=== PATIENT | male | born 1970 | race Caucasian/White ===

== ENCOUNTER 2019-09-23 01:27 | Emergency (ER) | payer BC ==
[2019-09-23 01:37] VITALS: BP 151/94; PULSE 98
--- NOTE | 2019-09-23 02:19 | EDM.PDOC ---
ED HPI GENERAL MEDICAL PROBLEM - General Chief Complaint: ENT Problem Stated Complaint: PERSISTENT NOSE BLEED OVER 24 HOURS Time Seen by Provider: 09/23/19 01:50 Source of Information: Reports: Patient, Family () History Limitations: Reports: No Limitations - History of Present Illness INITIAL COMMENTS - FREE TEXT/NARRATIVE: Mr. Gomez is a very pleasant 49-year-old gentleman with no chronic medical problems, on no medications, who now presents the ED with painless epistaxis that has been coming and going since 15:00 to 16:00 yesterday afternoon. The patient states that blood is coming out of both nostrils. No trauma to the nose, and the patient is not on any blood thinners. No prior history of epistaxis. The patient states that he has packed both nostrils, and pinched them tightly for 15 minutes, about 6 times, but that the bleeding continues to recur. Here in the ED, the patient's initial BP is found to be mildly elevated at 151/94, otherwise, he is hemodynamically stable, afebrile, saturating 96% on room air. Other than the epistaxis, the patient denies recent fever, chills, sore throat, ear pain or decreased hearing, nasal or sinus congestion, cough, dyspnea, chest pain, palpitations, nausea, vomiting, constipation, diarrhea, abdominal pain, urinary symptoms, recent weight gain or weight loss, recent bloody bowel movements or black bowel movements, recent joint aches, headaches, or rashes. The patient's PCP is Lauren Campo NP. - Related Data Allergies Allergy/AdvReac Type Severity Reaction Status Date / Time No Known Allergies Allergy Verified 09/23/19 01:35 Home Meds: Home Meds . [No Known Home Meds] 09/18/14 [History] Past Medical History - Past Surgical History HEENT Surgical History: Reports: Other (See Below) (Cleft palate repair as an ) Social & Family History - Tobacco Use Smoking Status *Q: Current Every Day Smoker Years of Tobacco use: 39 Packs/Tins Daily: 1.5 - Alcohol Use Alcohol Use History: Yes Alcohol Use Frequency: Socially - Recreational Drug Use Recreational Drug Use: Yes Drug Use in Last 12 Months: Yes Recreational Drug Type: Reports: Cocaine (last snorted around 1989), LSD (Acid) (last took around 1989), Marijuana/Hashish (smokes weekly), Methamphetamine (last snorted, smoked, injected around 1989), Psilocybin (Mushrooms) (last took 2019), Valium (last took when 16 yrs old) - Living Situation & Occupation Living situation: Reports: , with Spouse Occupation: Unemployed ED ROS ENT - Review of Systems Review Of Systems: Comprehensive ROS is negative, except as noted in HPI. ED EXAM, ENT - Physical Exam Exam: See Below Exam Limited By: No Limitations General Appearance: Alert, WD/WN, No Apparent Distress Eye Exam: Bilateral Eye: EOMI, Normal Inspection Ears: Normal External Exam, Normal Canal, Hearing Grossly Normal, Normal TMs Nose: Normal Inspection, Normal Mucousa, No Blood. No: Dried Blood Mouth/Throat: Normal Gums, Normal Lips, Normal Teeth, Other (Small amount of dried blood on the posterior oropharynx. No blood clots or active bleeding seen.) Head: Atraumatic, Normocephalic Neck: Normal Inspection, Supple, Non-Tender, Full Range of Motion. No: Lymphadenopathy (L), Lymphadenopathy (R) Course - Vital Signs Last Recorded V/S: Last Vital Signs Temp 36.5 C 09/23/19 01:35 Pulse 98 09/23/19 01:35 Resp 16 09/23/19 01:35 BP 151/94 H 09/23/19 01:35 Pulse Ox 96 09/23/19 01:35 - Orders/Labs/Meds Labs: Laboratory Tests 09/23/19 09/23/19 09/23/19 Range/Units 02:16 02:16 02:16 WBC 9.88 H (4.23-9.07) K/mm3 RBC 5.30 (4.63-6.08) M/mm3 Hgb 16.1 (13.7-17.5) gm/dl Hct 47.3 (40.1-51.0) % MCV 89.2 (79.0-92.2) fl MCH 30.4 (25.7-32.2) pg MCHC 34.0 (32.2-35.5) g/dl RDW Std Deviation 44.1 H (35.1-43.9) fL Plt Count 250 (163-337) K/mm3 MPV 8.8 L (9.4-12.3) fl Neutrophils % (Manual) 76 H (40-60) % Band Neutrophils % 2 (0-10) % Lymphocytes % (Manual) 12 L (20-40) % Atypical Lymphs % 0 % Monocytes % (Manual) 8 (2-10) % Eosinophils % (Manual) 1 (0.8-7.0) % Basophils % (Manual) 1 (0.2-1.2) Platelet Estimate Adequate Plt Morphology Comment Normal RBC Morph Comment Normal PT 10.9 (9.7-12.0) SECONDS INR 1.00 APTT 30 (22-31) SECONDS Sodium 137 (136-145) mEq/L Potassium 4.1 (3.5-5.1) mEq/L Chloride 101 (98-107) mEq/L Carbon Dioxide 28 (21-32) mEq/L Anion Gap 12.1 (5-15) BUN 27 H (7-18) mg/dL Creatinine 1.2 (0.7-1.3) mg/dL Est Cr Clr Drug Dosing 68.85 mL/min Estimated GFR (MDRD) > 60 (>60) mL/min BUN/Creatinine Ratio 22.5 H (14-18) Glucose 116 H (74-106) mg/dL Calcium 8.8 (8.5-10.1) mg/dL Total Bilirubin 0.6 (0.2-1.0) mg/dL AST 21 (15-37) U/L ALT 37 (16-63) U/L Alkaline Phosphatase 84 (46-116) U/L Total Protein 6.9 (6.4-8.2) g/dl Albumin 3.6 (3.4-5.0) g/dl Globulin 3.3 gm/dL Albumin/Globulin Ratio 1.1 (1-2) Meds: Medications Discontinued Medications Generic Name Dose Route Start Last Admin Trade Name Freq PRN Reason Stop Dose Admin Cocaine HCl 2 ml 09/23/19 02:04 09/23/19 02:11 Cocaine Hcl TOP 09/23/19 02:05 2 ml ONETIME STA Administration Cocaine HCl Confirm 09/23/19 02:06 09/23/19 02:12 Cocaine Hcl Administered 09/23/19 02:07 Not Given Dose 4 ml .ROUTE .STK-MED ONE - Re-Assessments/Exams Free Text/Narrative Re-Assessment/Exam: 09/23/19 02:14 As above, the patient has had epistaxis of unknown side on and off since 15:00 or 16:00 yesterday afternoon. When initially evaluated, the patient had packing in both nostrils, which I removed, revealing a small amount of dried blood on the packing. Initially, his nose was not bleeding, and not only did I not see a suspect vessel, I did not see any dried blood to suggest recent bleeding, either. Indeed, the only evidence that I saw of recent bleeding was a small amount of dried blood on his posterior oropharynx. I had him gargle and spit some warm water in order to clean the blood off his posterior oropharynx. Within a minute or two, he developed right-sided epistaxis. Due to the volume of bleeding, I was unable to see its source. I applied several applications of topical cocaine, and at this time, the bleeding appears to have stopped. I am having him pinch his nostrils tightly until around 02:25, and in the meantime, a CBC, CMP, and coags have been drawn. If his nose bleeds again, I will likely have to place a Rapid Rhino. 09/23/19 03:48 The patient's CBC is remarkable for a WBC count mildly elevated at 9.88, but with only 2% bandemia, and the remainder of his CBC being unremarkable. His CMP is remarkable for a BUN mildly elevated at 27, but with a Cr normal at 1.2. His blood glucose is slightly elevated at 116, with the remainder of his CMP being unremarkable. His coags are within normal limits. Test results discussed with the patient and his . I do not have an answer as to why the patient developed the epistaxis, as no source of bleeding was seen, however, given the patient's significant history of smoking, I am concerned that there could be a tumor, therefore I am recommending that he follow-up with ENT. The patient agreed. In the meantime, I had the patient apply a thin smear of antibiotic ointment to both sides of his nasal septum, and, going forward, I will have him apply a thin smear of petroleum jelly to both sides of his nasal septum a couple of times a day, to help keep the mucous membranes moist. Departure - Departure Time of Disposition: 03:50 Disposition: Home, Self-Care 01 Condition: Good Clinical Impression: Right-sided epistaxis - Discharge Information *PRESCRIPTION DRUG MONITORING PROGRAM REVIEWED*: Not Applicable *COPY OF PRESCRIPTION DRUG MONITORING REPORT IN PATIENT DAMIEN: Not Applicable Referrals: Lauren Campo NP [Primary Care Provider] - Hosea Wen MD [Ordering Only Provider] - Forms: ED Department Discharge Additional Instructions: You were seen in the emergency room after developing a painless nosebleed yesterday afternoon. Work-up in the ER included blood work, which returned unremarkable. You are not anemic, your liver function tests were normal, and your coagulation studies were normal. On examination, you had a significant nosebleed on the right side, but the source of the bleed was not seen. The bleeding was able to be stopped with a vasoconstricting medicine and pinching the nostril. Going forward, we recommend that you apply a thin smear of petroleum jelly to each side of your nasal septum a couple of times a day, to help keep the mucous membranes moist. Because of your significant history of smoking, we are concerned that a tumor could potentially be the cause of the bleeding, therefore we recommend that you follow-up with the ENT Dr. Hosea Wen, in [place], at the next available appointment. If your nose bleeds again, we recommend that you sit upright, tilt your head slightly forward, and pinch your nostrils tightly for 10 to 15 minutes. If that does not stop your nosebleed, please do not hesitate to return to the ER for reevaluation. Sepsis Event Note (ED) - Evaluation Sepsis Screening Result: No Definite Risk - Focused Exam Vital Signs: Vital Signs Temp Pulse Resp BP Pulse Ox 09/23/19 01:35 36.5 C 98 16 151/94 H 96
== END 2019-09-23 03:57 | disposition home or self-care (01) ==
LOC: JD.ED 01:27
DX: R04.0 Epistaxis (principal); F17.210 Nicotine dependence, cigarettes, uncomplicated
CPT/HCPCS: 30901; 36415; 80053; 85007; 85027; 85610; 85730; 99282; 99283

== ENCOUNTER 2020-12-25 08:51 | Emergency (ER) | payer BC ==
--- NOTE | 2020-12-25 09:05 | EDM.PDOC ---
ED HPI GENERAL MEDICAL PROBLEM - General Chief Complaint: Chest Pain Stated Complaint: SHARP CHEST PAIN Time Seen by Provider: 12/25/20 09:05 - History of Present Illness INITIAL COMMENTS - FREE TEXT/NARRATIVE: 50-year-old male presents the emergency room with chest pain. Patient's been having on and off chest pain for several weeks. He had a stress test done a couple weeks ago and it is suggestive of may be a small blockage he is scheduled to see cardiology at [facility] the middle of December. Patient is not taking any routine medications not taking any medication so far today. Approximately 40 minutes prior to arrival the patient developed a sharp pain substernally. This pain did let up on its own. He still has some pain but he says this is the pain that has been present that initiated his heart work-up. Patient has a long, heavy smoking history. Family history is suggestive for vascular disease usually associated with smoking he is not aware of heart attacks in the family however one grandfather had congestive heart failure his mother of cancer. Chest Pain Score (Numeric/FACES): 8 - Related Data Allergies Allergy/AdvReac Type Severity Reaction Status Date / Time No Known Allergies Allergy Verified 12/25/20 09:05 Home Meds: Home Meds Rivaroxaban [Xarelto] 15 mg PO BID #42 tab 12/25/20 [Rx] Past Medical History - Past Health History Medical/Surgical History: Denies Medical/Surgical History - Past Surgical History HEENT Surgical History: Reports: Other (See Below) (Cleft palate repair as an infant) Social & Family History - Living Situation & Occupation Living situation: Reports: , with Spouse Occupation: Unemployed ED ROS GENERAL - Review of Systems Review Of Systems: See Below Constitutional: Reports: No Symptoms HEENT: Reports: No Symptoms Respiratory: Reports: Cough, Sputum (He believes this is a smoker's cough) Cardiovascular: Reports: Chest Pain Endocrine: Reports: No Symptoms GI/Abdominal: Reports: No Symptoms : Reports: No Symptoms Musculoskeletal: Reports: No Symptoms Skin: Reports: No Symptoms ED EXAM, GENERAL - Physical Exam Exam: See Below Exam Limited By: No Limitations General Appearance: Alert, No Apparent Distress Head: Atraumatic, Normocephalic Neck: Normal Inspection, Supple, Non-Tender, Full Range of Motion Respiratory/Chest: No Respiratory Distress, Lungs Clear, Normal Breath Sounds Cardiovascular: Regular Rate, Rhythm, No Edema, No Murmur GI/Abdominal: Normal Bowel Sounds, Soft, Non-Tender Back Exam: Normal Inspection. No: CVA Tenderness (L), CVA Tenderness (R) Neurological: Alert, Oriented, Normal Cognition Psychiatric: Normal Affect, Normal Mood Skin Exam: Warm, Dry, Intact, Normal Color, No Rash #1 Interpretation EKG Date: 12/25/20 Rhythm: NSR Rate (Beats/Min): 84 Abrams: Normal P-Wave: Present QRS: Other (Q waves noted inferior leads unclear if these are pathologic) ST-T: Normal QT: Normal Comparison: Change From Previous EKG (Patient had a stress test done earlier this month comparing tracings could be lead placement variability but he appears to have now borderline Q waves in the inferior leads.) EKG Interpretation Comments: Abnormal #2 Interpretation EKG Date: 12/25/20 Rhythm: NSR Rate (Beats/Min): 91 Abrams: Normal P-Wave: Present QRS: Other (Inferior Q waves noted unclear if these are pathologic) ST-T: Normal QT: Normal Comparison: No Change (No significant change noted from tracing done earlier today) EKG Interpretation Comments: Abnormal Course - Vital Signs Last Recorded V/S: Last Vital Signs Temp 36.2 C 12/25/20 09:46 Pulse 74 12/25/20 11:02 Resp 18 12/25/20 11:02 BP 119/86 12/25/20 11:02 Pulse Ox 96 12/25/20 11:02 - Orders/Labs/Meds Orders: Active Orders 24 hr Category Date Time Status Lactated Ringers [Ringers, Lactated] 1,000 ml Med 12/25/20 09:15 Active IV ASDIRECTED Sodium Chloride 0.9% [Normal Saline] 100 ml Med 12/25/20 13:15 Active IV ASDIRECTED Sodium Chloride 0.9% [Saline Flush] Med 12/25/20 13:13 Active 10 ml FLUSH ONETIME PRN Medication Orders Lactated Ringer's (Ringers, Lactated) 1,000 mls @ 50 mls/hr IV ASDIRECTED JACQUI Last Admin: 12/25/20 09:40 Dose: 50 mls/hr Documented by: LINDA Sodium Chloride (Normal Saline) 100 mls @ 75 mls/hr IV ASDIRECTED JACQUI Last Admin: 12/25/20 13:30 Dose: 75 mls/hr Documented by: ALVINO Sodium Chloride (Sodium Chloride 0.9% 10 Ml Syringe) 10 ml FLUSH ONETIME PRN PRN Reason: IV FLUSH Last Admin: 12/25/20 13:30 Dose: 10 ml Documented by: ALVINO Labs: Laboratory Tests 12/25/20 12/25/20 12/25/20 Range/Units 09:05 09:05 09:05 PT 10.5 (9.7-12.0) SECONDS INR 0.94 APTT 31.1 (21.7-31.4) SECONDS D-Dimer, Quantitative 0.63 H (0.19-0.50) mg/L Sodium 136 (136-145) mEq/L Potassium 4.1 (3.5-5.1) mEq/L Chloride 101 (98-107) mEq/L Carbon Dioxide 26 (21-32) mEq/L Anion Gap 13.1 (5-15) BUN 9 (7-18) mg/dL Creatinine 1.1 (0.7-1.3) mg/dL Est Cr Clr Drug Dosing 73.91 mL/min Estimated GFR (MDRD) > 60 (>60) mL/min BUN/Creatinine Ratio 8.2 L (14-18) Glucose 106 H (70-99) mg/dL Calcium 8.9 (8.5-10.1) mg/dL Total Bilirubin 0.6 (0.2-1.0) mg/dL AST 14 L (15-37) U/L ALT 17 (16-63) U/L Alkaline Phosphatase 83 (46-116) U/L Troponin I < 0.017 (0.00-0.056) ng/mL Total Protein 7.7 (6.4-8.2) g/dl Albumin 3.9 (3.4-5.0) g/dl Globulin 3.8 gm/dL Albumin/Globulin Ratio 1.0 (1-2) SARS-CoV-2 RNA (FITO) (NEGATIVE) 12/25/20 12/25/20 Range/Units 09:50 11:42 PT (9.7-12.0) SECONDS INR APTT (21.7-31.4) SECONDS D-Dimer, Quantitative (0.19-0.50) mg/L Sodium (136-145) mEq/L Potassium (3.5-5.1) mEq/L Chloride (98-107) mEq/L Carbon Dioxide (21-32) mEq/L Anion Gap (5-15) BUN (7-18) mg/dL Creatinine (0.7-1.3) mg/dL Est Cr Clr Drug Dosing mL/min Estimated GFR (MDRD) (>60) mL/min BUN/Creatinine Ratio (14-18) Glucose (70-99) mg/dL Calcium (8.5-10.1) mg/dL Total Bilirubin (0.2-1.0) mg/dL AST (15-37) U/L ALT (16-63) U/L Alkaline Phosphatase (46-116) U/L Troponin I < 0.017 (0.00-0.056) ng/mL Total Protein (6.4-8.2) g/dl Albumin (3.4-5.0) g/dl Globulin gm/dL Albumin/Globulin Ratio (1-2) SARS-CoV-2 RNA (FITO) Negative (NEGATIVE) Meds: Medications Generic Name Dose Route Start Last Admin Trade Name Freq PRN Reason Stop Dose Admin Lactated Ringer's 1,000 mls @ 50 mls/hr 12/25/20 09:15 12/25/20 09:40 Ringers, Lactated IV 50 mls/hr ASDIRECTED JACQUI Administration Sodium Chloride 100 mls @ 75 mls/hr 12/25/20 13:15 12/25/20 13:30 Normal Saline IV 75 mls/hr ASDIRECTED JACQUI Administration Sodium Chloride 10 ml 12/25/20 13:13 12/25/20 13:30 Sodium Chloride 0.9% 10 Ml Syringe FLUSH 10 ml ONETIME PRN Administration IV FLUSH Discontinued Medications Generic Name Dose Route Start Last Admin Trade Name Freq PRN Reason Stop Dose Admin Aspirin 324 mg 12/25/20 09:13 12/25/20 09:38 Aspirin 81 Mg Tab.Chew PO 12/25/20 09:14 324 mg ONETIME ONE Administration Iopamidol 100 ml 12/25/20 13:13 12/25/20 13:30 Iopamidol 755 Mg/Ml 100 Ml Bottle IVPUSH 12/25/20 13:14 100 ml ONETIME ONE Administration Nitroglycerin 0.4 mg 12/25/20 09:13 12/25/20 09:51 Nitroglycerin 0.4 Mg Tab.Sl SL 0.4 mg Q5M PRN Administration Chest Pain Nitroglycerin 0.1 mg 12/25/20 10:18 12/25/20 11:01 Nitroglycerin 0.1 Mg/Hr Transdermal Patch TRDERM 12/25/20 10:19 Not Given ONETIME ONE Nitroglycerin 1 gm 12/25/20 11:00 12/25/20 11:00 Nitroglycerin 2% Oint 1 Gm Ud Packet TOP 12/25/20 11:01 1 gm ONETIME ONE Administration - Re-Assessments/Exams Free Text/Narrative Re-Assessment/Exam: 12/25/20 09:50 She was given aspirin and nitro he has had 2 nitro down he says his pain is now 5 but also states it is significantly better. We will attempt a third nitro recheck EKG after this. Other labs and remaining work-up pending 12/25/20 13:12 Seconds troponin is normal patient has a negative troponin but an elevated D- dimer we will check a CTA. 12/25/20 14:33 CTA is positive for PE within the segmental and subsegmental branches of the right lower lung he is got diffuse emphysematous changes with some blebs noted in the subpleural area noted in bilateral lung lakhani. Discussed treatment options for this and will start Xarelto 15 mg twice daily for 21 days and the patient will need to follow-up with his regular provider before changing to 20 mg once daily thereafter. Departure - Departure Time of Disposition: 14:34 Disposition: Home, Self-Care 01 Clinical Impression: Pulmonary embolism - Discharge Information Prescriptions: Rivaroxaban [Xarelto] 15 mg PO BID #42 tab Referrals: Christel Dan [employer] TECHNICIAN [Primary Care Provider] - Forms: ED Department Discharge Additional Instructions: Return to the emergency room with any questions problems or worsening symptoms. You have been started on Xarelto you will take 15 mg twice daily for 21 days. After this you need to be changed to 20 mg once daily. Please follow-up with your regular healthcare provider in 1 week for recheck. Your prescription has been sent electronically to [facility] on [address]. Sepsis Event Note (ED) - Evaluation Sepsis Screening Result: No Definite Risk - Focused Exam Vital Signs: Vital Signs Temp Pulse Resp BP BP Pulse Ox 12/25/20 11:02 74 18 119/86 96 12/25/20 09:51 136/84 12/25/20 09:46 36.2 C 74 18 125/98 H 95 12/25/20 09:45 125/98 H 12/25/20 09:35 143/104 H 12/25/20 09:00 36.6 C 84 18 159/107 H 96 - My Orders Last 24 Hours: My Active Orders 12/25/20 09:15 Lactated Ringers [Ringers, Lactated] 1,000 ml IV ASDIRECTED 12/25/20 13:13 Sodium Chloride 0.9% [Saline Flush] 10 ml FLUSH ONETIME PRN 12/25/20 13:15 Sodium Chloride 0.9% [Normal Saline] 100 ml IV ASDIRECTED - Assessment/Plan Last 24 Hours: My Active Orders 12/25/20 09:15 Lactated Ringers [Ringers, Lactated] 1,000 ml IV ASDIRECTED 12/25/20 13:13 Sodium Chloride 0.9% [Saline Flush] 10 ml FLUSH ONETIME PRN 12/25/20 13:15 Sodium Chloride 0.9% [Normal Saline] 100 ml IV ASDIRECTED
[2020-12-25] MEDS ORDERED: Aspirin 81 MG Tab.Chew PO ONE (09:13)
[2020-12-25] MEDS ORDERED: Lactated Ringers 1,000 ML IV SCH (09:15)
[2020-12-25] MEDS: Nitroglycerin 0.4 MG Tab.SL SL PRN ×3 (09:35→09:51)
[2020-12-25 09:47] VITALS: PULSE 74
--- NOTE | 2020-12-25 09:57 | CR ---
Chest: Portable view of the chest was obtained. Comparison: No prior chest imaging is available. Heart size and mediastinum are within normal limits. Lungs are clear with no acute parenchymal change. No acute osseous abnormality is appreciated. Impression: 1. Nothing acute is seen on portable chest x-ray. Diagnostic code #1
[2020-12-25] MEDS ORDERED: Nitroglycerin 0.1 MG/HR Transdermal Patch TRDERM ONE (10:18)
[2020-12-25] MEDS ORDERED: Nitroglycerin 2% Oint 1 GM UD Packet TOP ONE (11:00)
[2020-12-25 11:03] VITALS: BP 119/86
[2020-12-25] MEDS ORDERED: Iopamidol 755 Mg/ML 100 ML Bottle IVPUSH ONE (13:13)
[2020-12-25] MEDS ORDERED: Sodium Chloride 0.9% 10 ML Syringe FLUSH PRN (13:13)
[2020-12-25] MEDS ORDERED: Sodium Chloride 0.9% 100 ML IV SCH (13:15)
--- NOTE | 2020-12-25 13:46 | CT ---
CT chest Technique: Multiple axial sections through the chest were obtained. Intravenous contrast was utilized. Study has been performed as a pulmonary angiogram protocol. Comparison: Prior chest x-ray performed earlier on the same day (9:25 AM). Findings: Pulmonary arteries are well opacified. Filling defects are seen within the segmental and subsegmental branches within the right lower lung. Findings are compatible with pulmonary embolism. No other findings of pulmonary emboli are seen. Thoracic aorta shows no aneurysm. No mediastinal adenopathy is seen. No axillary adenopathy is seen. Minimal coronary artery calcification is seen. No pericardial thickening is seen. Visualized upper abdominal structures show nothing acute. Lung window settings were reviewed. No acute parenchymal change is seen. There are subpleural blebs being seen throughout a large portion on both sides of the chest. Diffuse emphysematous change is also seen. Bone window settings were reviewed which show mild degenerative change scattered within the spine. No acute osseous abnormality is seen. Impression: 1. Pulmonary emboli within the segmental and subsegmental branches within the right lower lung. 2. Diffuse emphysematous change as well as diffuse subpleural blebs throughout both sides of the chest. 3. Minimal coronary artery calcification is noted. Diagnostic code #5
== END 2020-12-25 15:06 | disposition home or self-care (01) ==
LOC: JD.ED 08:51
DX: I26.99 Other pulmonary embolism without acute cor pulmonale (principal); Z20.822 Contact with and (suspected) exposure to COVID-19; Z79.01 Long term (current) use of anticoagulants
CPT/HCPCS: 36415; 71045; 71275; 80053; 84484; 85379; 85610; 85730; 87635; 93005; 99285; A9270; J7120; Q9967; U0002

== ENCOUNTER 2021-07-29 13:37 | Emergency (ER) | payer BC ==
[2021-07-29 13:58] VITALS: BP 117/96; PULSE 80
[2021-07-29] MEDS ORDERED: Sodium Chloride 0.9% 10 ML Syringe FLUSH PRN (14:36)
[2021-07-29 14:54] LABS: ESTIMATED GFR > 60 mL/min (>60)
== END 2021-07-29 16:01 | disposition home or self-care (01) ==
LOC: JD.ED 13:37
DX: R09.1 Pleurisy (principal); R07.89 Other chest pain; F17.210 Nicotine dependence, cigarettes, uncomplicated; Z79.899 Other long term (current) drug therapy
CPT/HCPCS: 36415; 71045; 80053; 84484; 85025; 85379; 86140; 93005; 99285; J3490

== ENCOUNTER 2022-02-05 21:06 | Emergency (ER) | payer BC ==
[2022-02-05] MEDS ORDERED: Sodium Chloride 0.9% 10 ML Syringe FLUSH PRN (21:21)
[2022-02-05 22:16] LABS: CORONAVIRUS COVID-19 NAA NEGATIVE (NEGATIVE)
[2022-02-05] MEDS ORDERED: Iopamidol 755 Mg/ML 100 ML Bottle IVPUSH ONE (22:32)
[2022-02-05 23:31] VITALS: BP 120/78; PULSE 78
== END 2022-02-05 23:30 | disposition home or self-care (01) ==
LOC: JD.ED 21:06
DX: J10.00 Influenza due to other identified influenza virus with unspecified type of pneumonia (principal); J18.9 Pneumonia, unspecified organism; R59.0 Localized enlarged lymph nodes; Z86.711 Personal history of pulmonary embolism; Z72.0 Tobacco use; Z79.01 Long term (current) use of anticoagulants; Z20.822 Contact with and (suspected) exposure to COVID-19
CPT/HCPCS: 0240U; 36415; 71045; 71275; 80053; 83735; 83880; 84484; 85025; 85379; 85610; 85730; 93005; 99285; J3490; Q9967